=== PATIENT | female | born 1970 | race Caucasian/White ===

== ENCOUNTER 2017-01-25 19:22 | Emergency (ER) | payer OTHER ==
[~2017-01-25] VITALS: Ht 167.6 cm; Wt 91.3 kg
[2017-01-25 20:09] LABS: HEMATOCRIT 34.9 % (36.0-46.0); MCHC 32.4 G/DL (30.0-36.0); MCV 86.4 FL (83-99); MEAN PLAT.VOLUME 11.9 uM^3 (9.5-12.4); PLATELET COUNT 216 K/uL (156-360); RBC DIS.WIDTH-CV 14.2 % (11.8-14.6); RBC DIS.WIDTH-SD 44.9 % (39-53); RED BLOOD COUNT 4.04 M/uL (3.80-5.20)
[2017-01-25 20:19] LABS: CHLORIDE 105 mEq/L (99-109); POTASSIUM 3.7 mEq/L (3.7-5.4); SODIUM 138 mEq/L (136-147)
[2017-01-25 20:21] LABS: GLUCOSE 99 mg/dL (70-99)
[2017-01-25 20:22] LABS: ANION GAP 10 MEQ/L (2-14)
[2017-01-25 20:24] LABS: GFR ESTIMATE (CALCULATED) > 59 mL/min/
[2017-01-25 20:25] LABS: UREA NITROGEN (BUN) 17 mg/dL (9-23)
[2017-01-25 20:31] LABS: TROP-I INTERPRETATION NEGATIVE; TROPONIN-I 0.02 ng/mL (0.0-0.30)
[2017-01-25 22:56] VITALS: BP 108/72
== END 2017-01-25 22:57 | disposition home or self-care (01) ==
LOC: EME 19:22
DX: R07.9 Chest pain, unspecified (principal)
CPT/HCPCS: 71020; 71275; 80048; 84484; 85027; 93005; 99281; 99285